=== PATIENT | female | born 1970 | race Caucasian/White ===

== ENCOUNTER 2021-06-03 02:43 | Emergency (ER) | payer OTHER ==
[~2021-06-03 02:43] MED LIST: AMOXICILLIN500 MG PO; ANTIVERT 25MG T25 MG PO; AUGMENTIN 875-1 EACH PO; CEFUROXIME500 MG PO; DOXYCYCLINE HY100 MG PO; FERROUS SULFAT325 M2 PO; IBUPROFEN800 MG PO; MACROBID 100 M100 MG PO; NAPROSYN500 MG PO; NORCO 7.5-3251 EACH PO; ONDANSETRON ODT4 MG PO; PRENATAL ONE T1 EACH PO; PYRIDIUM200 MG PO
[2021-06-03 03:50] LABS: HEMOGLOBIN 14.1 gm/dl (12.3-15.3); RED BLOOD COUNT 5.11 M/UL (4.00-5.10); WHITE BLOOD COUNT 6.3 K/UL (4.5-11.0)
[2021-06-03 04:08] LABS: BUN/CREATININE RATIO 20 (0-10)
== END 2021-06-03 05:55 | disposition home or self-care (01) ==
LOC: ER1 02:43
PROVIDERS: Physician Assistant
DX: R51.9 Headache, unspecified (principal); R19.7 Diarrhea, unspecified; Z20.822 Contact with and (suspected) exposure to COVID-19
CPT/HCPCS: 70450; 80053; 85025; 85610; 85652; 85730; 86140; 96372; 99284; J1885; U0002